=== PATIENT | female | born 1940 | race Caucasian/White ===

== ENCOUNTER 2025-07-31 18:07 | Outpatient (REF) | payer SELFPAY ==
--- OUTSIDE RECORDS SUMMARY | 2025-07-31 18:10 | XMS_ITS | Clinical Summary ---
Author Organization [address] Address [address] [place] [phone] Phone Care Team Providers Care Post Anesthesia Care Unit Nurse Name Role Phone Halima Jerez MD Primary Care Provider + Encounters Date Type Department Care Team Description 07/16/[address] [place] [phone] Halima Jerez MD 07/07/[address] [place] [phone] Halima Jerez MD from Last 3 Months Social History Tobacco Use Types Packs/Day Years Used Date Smoking Tobacco: Never Assessed Comments Unknown Sex and Gender Information Value Date Recorded Sex Assigned at Not on file Legal Sex Female 12:10 PM EDT Gender Identity Not on file Sexual Orientation Not on file Plan of Treatment Health Maintenance Due Date Last Done Comments DTaP,Tdap,and Td Vaccines (1 - Tdap) 1961 Pneumococcal Vaccine: 50+ Ye ars (1 of 2 - PCV) 1961 Zoster Vaccines (1 of 2) 1992 RSV Immunization Adult Patie nts (1 - 1-dose 75+ series) 2017 Depression Screening 11/25/2024 Falls Risk Assessment 04/12/2025 Medicare Annual Wellness Visit 04/12/2025 Osteoporosis Screening (Bone Density Screening) 04/12/2025 Social Influencers of Health Screening 04/12/2025 COVID-19 Vaccine ( - 2023-2 5 season) 2025 Influenza Vaccine (#1) 2025 Hypertension/CHF/CAD Annual BMP Blood Test 04/14/2026 04/14/2025 Cholesterol Screening (Lipid Panel) 04/14/2030 04/14/2025 HIB Vaccines Aged Out No longer eligi ble based on patient's age to complete this topic HPV Vaccines Aged Out No longer eligi ble based on patient's age to complete this topic Hepatitis A Vaccines Aged Out No long er eligible based on patient's age to complete this topic Hepatitis B Vaccines Aged Out No long er eligible based on patient's age to complete this topic IPV Vaccines Aged Out No longer eligi ble based on patient's age to complete this topic MMR Vaccines Aged Out No longer eligi ble based on patient's age to complete this topic Meningococcal ACWY Vaccine Aged Out N o longer eligible based on patient's age to complete this topic Meningococcal B Vaccine Aged Out No l onger eligible based on patient's age to complete this topic RSV Immunization Patients Un miri 20 months Aged Out No longer eligible b ased on patient's age to complete this topic Varicella Vaccines Aged Out No longer eligible based on patient's age to complete this topic Procedures Procedure Name Priority Date/Time Associated Diagnosis Comments COMPREHENSIVE METABOLIC PANEL Routine 04/14/2025 8:20 AM EDT Weakness Other fatigue Type 2 diabetes mellitus without complications ([facility] V24, [facility] V28) LIPID PANEL WITH REFLEX TO DIRECT LDL Routine 04/14/2025 8:20 AM EDT Weakness Other fatigue Type 2 diabetes mellitus without complications (CMS/HCC V24, CMS/[facility] V28) from Last 3 Months or Most Recently Relevant to Health Maintenance Results * (ABNORMAL) Lipid panel with reflex to direct LDL (04/14/2025 8:20 AM EDT) Cholesterol 209(H) 0 - 200 mg/dL LAB CHEMISTRY METHOD 04/14/2025 10:49 AM EDT [facility] Triglycerides 93 0 - 150 mg/dL LAB CHEMISTRY METHOD 04/14/2025 10:49 AM EDT [facility] HDL 52 >=40 mg/dL LAB CHEMISTRY METHOD 04/14/2025 10:49 AM EDT [facility] LDL Calculated 138(H) 0 - 100 mg/dL LAB CHEMISTRY METHOD 04/14/2025 10:49 AM T [facility] VLDL Cholesterol Abbe 18.6 mg/dL LAB CHEMISTRY METHOD 04/14/2025 10:49 AM [facility] Non HDL Chol. (LDL+VLDL) 157(H) <145 mg/dL LAB CHEMISTRY METHOD 04/14/2025 10:49 AM [facility] Chol/HDL Ratio 4.0 0.0 - 4.4 LAB CHEMISTRY METHOD 04/14/2025 10:49 AM [facility] Blood Venous blood specimen / Unknown Venipuncture / Unknown 04/14/2025 8:20 AM EDT 04/14/2025 9:34 AM EDT [facility] BLOOD ORDERABLES Final Result [facility] [address] [place] [address], [place] [phone] * (ABNORMAL) Comprehensive metabolic panel (04/14/2025 8:20 AM EDT) Sodium 140 133 - 145 mmol/L LAB CHEMISTRY METHOD 04/14/2025 10:49 AM [facility] Potassium 4.4 3.5 - 5.5 mmol/L LAB CHEMISTRY METHOD 04/14/2025 10:49 AM [facility] Chloride 108 96 - 110 mmol/L LAB CHEMISTRY METHOD 04/14/2025 10:49 AM [facility] CO2 28 21 - 32 mmol/L LAB CHEMISTRY METHOD 04/14/2025 10:49 AM [facility] Anion Gap 4 3 - 11 LAB CHEMISTRY METHOD 04/14/2025 10:49 AM [facility] Glucose 104(H) 70 - 100 mg/dL LAB CHEMISTRY METHOD 04/14/2025 10:49 AM [facility] BUN 25 5 - 25 mg/dL LAB CHEMISTRY METHOD 04/14/2025 10:49 AM [facility] Creatinine 1.21(H) 0.50 - 1.10 mg/dL LAB CHEMISTRY METHOD 04/14/2025 10:49 AM [facility] eGFR 45(L) >=60 mL/min/1. 73m2 LAB CHEMISTRY METHOD 04/14/2025 10:49 AM [facility] Comment:Calculation based on the Chronic Kidney Disease Epidemiology Collaboration (CKD-EPI) equation refit without adjustment for race. BUN/Creatinine Ratio 20.7 LAB CHEMISTRY METHOD 04/14/2025 10:49 AM [facility] Calcium 8.7 8.5 - 10.5 mg/dL LAB CHEMISTRY METHOD 04/14/2025 10:49 AM [facility] AST (SGOT) 10 10 - 42 unit/L LAB CHEMISTRY METHOD 04/14/2025 10:49 AM [facility] ALT (SGPT) 16 10 - 60 unit/L LAB CHEMISTRY METHOD 04/14/2025 10:49 AM [facility] Alkaline Phosphatase 75 42 - 121 unit/L LAB CHEMISTRY METHOD 04/14/2025 10:49 AM [facility] Total Protein 5.5(L) 6.0 - 8.0 g/dL LAB CHEMISTRY METHOD 04/14/2025 10:49 AM [facility] Albumin 3.2 3.2 - 5.0 g/dL LAB CHEMISTRY METHOD 04/14/2025 10:49 AM [facility] Total Bilirubin 0.3 0.0 - 1.4 mg/dL LAB CHEMISTRY METHOD 04/14/2025 10:49 AM [facility] Blood Venous blood specimen / Unknown Venipuncture / Unknown 04/14/2025 8:20 AM EDT 04/14/2025 9:34 AM EDT us [facility] BLOOD ORDERABLES Final Result [facility] [address] [place] [address], [place] [phone] from Last 3 Months or Most Recently Relevant to Health Maintenance Insurance [facility]ARE [facility] Care Teams Post Anesthesia Care Unit Nurse Relationship Specialty Start Date End Date Halima Jerez MD [address] [place] [id number] PCP - General Internal Medicine 04/12/25
--- OUTSIDE RECORDS SUMMARY | 2025-07-31 18:10 | XMS_ITS | Encounter Summary ---
Author Organization [facility] Address [address] [place] [phone] Care Team Providers Care Asbestos Removal Worker Name Role Phone Halima Jerez MD Primary Care Provider + Encounter Details Date Type Department Care Team (Late st Contact Info) Description 04/12/2025 Lab Requisition [facility] - Main Lab [address] [facility] [place] [phone] Armando Adkins PA [address] [place] [address] Weakness; Other fatigue; Type 2 diabetes mellitus without complications (CMS/HCC V24, CMS/HCC V28) Social History Tobacco Use Types Packs/Day Years Used Date Smoking Tobacco: Never Assessed Comments Unknown Sex and Gender Information Value Date Recorded Sex Assigned at Not on file Legal Sex Female 12:10 PM EDT Gender Identity Not on file Sexual Orientation Not on file documented as of this encounter Plan of Treatment Not on file documented as of this encounter Procedures Procedure Name Priority Date/Time Associated Diagnosis Comments LIPID PANEL WITH REFLEX TO DIRECT LDL Routine 04/14/2025 8:20 AM EDT Weakness Other fatigue Type 2 diabetes mellitus without complications (CMS/HCC V24, CMS/HCC V28) CBC WITH AUTO DIFFERENTIAL Routine 04/14/2025 8:20 AM EDT Weakness Other fatigue Type 2 diabetes mellitus without complications (CMS/HCC V24, CMS/HCC V28) CBC AND DIFFERENTIAL Routine 04/14/2025 8:20 AM EDT Weakness Other fatigue Type 2 diabetes mellitus without complications (CMS/HCC V24, CMS/HCC V28) THYROID STIMULATING HORMONE Routine 04/14/2025 8:20 AM EDT Weakness Other fatigue Type 2 diabetes mellitus without complications ([facility]/HCC V24, [facility] V28) HEMOGLOBIN A1C Routine 04/14/2025 8:20 AM EDT Weakness Other fatigue Type 2 diabetes mellitus without complications ([facility]/HCC V24, [facility] V28) COMPREHENSIVE METABOLIC PANEL Routine 04/14/2025 8:20 AM EDT Weakness Other fatigue Type 2 diabetes mellitus without complications ([facility]/HCC V24, [facility] V28) documented in this encounter Results * (ABNORMAL) CBC auto differential (04/14/2025 8:20 AM EDT) [facility] WBC 7.9 4.8 - 10.8 K/mcL LAB HEMETOLOGY METHOD 04/14/2025 9:57 AM [facility] RBC 4.40 3.80 - 4.80 M/[facility] LAB HEMETOLOGY METHOD 04/14/2025 9:57 AM [facility] Hemoglobin 12.8 11.5 - 16.0 g/dL LAB HEMETOLOGY METHOD 04/14/2025 9:57 AM [facility] Hematocrit 40.3 35.0 - 47.0 % LAB HEMETOLOGY METHOD 04/14/2025 9:57 AM [facility] MCV 92.0 79.0 - 98.0 FL LAB HEMETOLOGY METHOD 04/14/2025 9:57 AM [facility] MCH 29.2 27.0 - 32.0 pcg LAB HEMETOLOGY METHOD 04/14/2025 9:57 AM [facility] MCHC 31.8(L) 32.0 - 37.0 g/dL LAB HEMETOLOGY METHOD 04/14/2025 9:57 AM [facility] RDW 13.9 11.0 - 15.0 % LAB HEMETOLOGY METHOD 04/14/2025 9:57 AM [facility] Platelets 284 130 - 400 K/mcL LAB HEMETOLOGY METHOD 04/14/2025 9:57 AM [facility] MPV 11.0 7.0 - 11.0 FL LAB HEMETOLOGY METHOD 04/14/2025 9:57 AM [facility] NRBC 0.0 <1.0 % LAB HEMETOLOGY METHOD 04/14/2025 9:57 AM [facility] NRBC Absolute 0.00 <0.10 K/mcL LAB HEMETOLOGY METHOD 04/14/2025 9:57 AM [facility] Neutrophils Relative 69.0 % LAB HEMETOLOGY METHOD 04/14/2025 9:57 AM [facility] Lymphocytes Relative 16.4 % LAB HEMETOLOGY METHOD 04/14/2025 9:57 AM [facility] Monocytes Relative 9.7 % LAB HEMETOLOGY METHOD 04/14/2025 9:57 AM [facility] Eosinophils Relative 3.4 % LAB HEMETOLOGY METHOD 04/14/2025 9:57 AM [facility] Basophils Relative 0.9 % LAB HEMETOLOGY METHOD 04/14/2025 9:57 AM [facility] Immature Granulocytes Relative 0.6 % LAB HEMETOLOGY METHOD 04/14/2025 9:57 AM [facility] Neutrophils Absolute 5.48 1.50 - 7.00 K/mcL LAB HEMETOLOGY METHOD 04/14/2025 9:57 AM [facility] Lymphocytes Absolute 1.30 1.00 - 5.00 K/mcL LAB HEMETOLOGY METHOD 04/14/2025 9:57 AM [facility] Monocytes Absolute 0.77 0.20 - 1.00 K/mcL LAB HEMETOLOGY METHOD 04/14/2025 9:57 AM EDT [facility] Eosinophils Absolute 0.27 0.00 - 0.50 K/[facility] LAB HEMETOLOGY METHOD 04/14/2025 9:57 AM EDT [facility] Basophils Absolute 0.07 0.00 - 0.20 K/[facility] LAB HEMETOLOGY METHOD 04/14/2025 9:57 AM EDT [facility] Immature Granulocytes Absolute 0.05(H) 0.00 - 0.03 K/mcL LAB HEMETOLOGY METHOD 04/14/2025 9:57 AM EDT [facility] Blood Venous blood specimen / Unknown Venipuncture / Unknown 04/14/2025 8:20 AM EDT 04/14/2025 9:34 AM EDT [facility] BLOOD ORDERABLES Final Result Performing Organization Address City/[facility]/ZIP Co de Phone Number [facility] [address] [place] [address], [place] [phone] * Thyroid stimulating hormone (04/14/2025 8:20 AM EDT) [facility] Signature TSH 2.11 0.40 - 4.00 mcIU/mL LAB CHEMISTRY METHOD 04/14/2025 11:35 AM EDT [facility] Blood Venous blood specimen / Unknown Venipuncture / Unknown 04/14/2025 8:20 AM EDT 04/14/2025 9:34 AM EDT [facility] BLOOD ORDERABLES Final Result [facility] [address] [place] [address], [place] [phone] * Hemoglobin A1c (04/14/2025 8:20 AM EDT) Pathologist [facility] Hemoglobin A1C 5.5 <6.5 % LAB CHEMISTRY METHOD 04/16/2025 10:32 PM EDT [facility] Mean Bld Glu Estim. 111 mg/dL LAB CHEMISTRY METHOD 04/16/2025 10:32 PM T [facility] Blood Venous blood specimen / Unknown Venipuncture / Unknown 04/14/2025 8:20 AM EDT 04/14/2025 9:34 AM EDT us [facility] LAB BLOOD ORDERABLES Final Result [facility] [address] [place] [address], [place] [phone] * (ABNORMAL) Lipid panel with reflex to direct LDL (04/14/2025 8:20 AM EDT) [facility] Cholesterol 209(H) 0 - 200 mg/dL LAB CHEMISTRY METHOD 04/14/2025 10:49 AM [facility] Triglycerides 93 0 - 150 mg/dL LAB CHEMISTRY METHOD 04/14/2025 10:49 AM [facility] HDL 52 >=40 mg/dL LAB CHEMISTRY METHOD 04/14/2025 10:49 AM T [facility] LDL Calculated 138(H) 0 - 100 mg/dL LAB CHEMISTRY METHOD 04/14/2025 10:49 AM [facility] VLDL Cholesterol Abbe 18.6 mg/dL LAB CHEMISTRY METHOD 04/14/2025 10:49 AM EDT [facility] Non HDL Chol. (LDL+VLDL) 157(H) <145 mg/dL LAB CHEMISTRY METHOD 04/14/2025 10:49 AM [facility] Chol/HDL Ratio 4.0 0.0 - 4.4 LAB CHEMISTRY METHOD 04/14/2025 10:49 AM [facility] Blood Venous blood specimen / Unknown Venipuncture / Unknown 04/14/2025 8:20 AM EDT 04/14/2025 9:34 AM EDT us [facility] LAB BLOOD ORDERABLES Final Result [facility] [address] [place] [address], * (ABNORMAL) Comprehensive metabolic panel (04/14/2025 8:20 AM EDT) Sodium 140 133 - 145 mmol/L LAB CHEMISTRY METHOD 04/14/2025 10:49 AM [facility] Potassium 4.4 3.5 - 5.5 mmol/L LAB CHEMISTRY METHOD 04/14/2025 10:49 AM [facility] Chloride 108 96 - 110 mmol/L LAB CHEMISTRY METHOD 04/14/2025 10:49 AM [facility] CO2 28 21 - 32 mmol/L LAB CHEMISTRY METHOD 04/14/2025 10:49 AM [facility] Anion Gap 4 3 - 11 LAB CHEMISTRY METHOD 04/14/2025 10:49 AM [facility] Glucose 104(H) 70 - 100 mg/dL LAB CHEMISTRY METHOD 04/14/2025 10:49 AM [facility] BUN 25 5 - 25 mg/dL LAB CHEMISTRY METHOD 04/14/2025 10:49 AM [facility] Creatinine 1.21(H) 0.50 - 1.10 mg/dL LAB CHEMISTRY METHOD 04/14/2025 10:49 AM [facility] eGFR 45(L) >=60 mL/min/1. 73m2 LAB CHEMISTRY METHOD 04/14/2025 10:49 AM [facility] Comment:Calculation based on the Chronic Kidney Disease Epidemiology Collaboration (CKD-EPI) equation refit without adjustment for race. BUN/Creatinine Ratio 20.7 LAB CHEMISTRY METHOD 04/14/2025 10:49 AM [facility] Calcium 8.7 8.5 - 10.5 mg/dL LAB CHEMISTRY METHOD 04/14/2025 10:49 AM [facility] AST (SGOT) 10 10 - 42 unit/L LAB CHEMISTRY METHOD 04/14/2025 10:49 AM [facility] ALT (SGPT) 16 10 - 60 unit/L LAB CHEMISTRY METHOD 04/14/2025 10:49 AM [facility] Alkaline Phosphatase 75 42 - 121 unit/L LAB CHEMISTRY METHOD 04/14/2025 10:49 AM [facility] Total Protein 5.5(L) 6.0 - 8.0 g/dL LAB CHEMISTRY METHOD 04/14/2025 10:49 AM [facility] Albumin 3.2 3.2 - 5.0 g/dL LAB CHEMISTRY METHOD 04/14/2025 10:49 AM [facility] Total Bilirubin 0.3 0.0 - 1.4 mg/dL LAB CHEMISTRY METHOD 04/14/2025 10:49 AM [facility] Blood Venous blood specimen / Unknown Venipuncture / Unknown 04/14/2025 8:20 AM EDT 04/14/2025 9:34 AM EDT us [facility] BLOOD ORDERABLES Final Result [facility] [address] [place] [address], documented in this encounter Visit Diagnoses Diagnosis Weakness Other malaise and fatigue Other fatigue Type 2 diabetes mellitus without complications (CMS/HCC V24, CMS/HCC V28) documented in this encounter Care Teams Asbestos Removal Worker Relationship Specialty Start Date End Date Halima Jerez MD [address] [place] [address] PCP - General Internal Medicine 04/12/25 documented as of this encounter
== END 2025-07-31 18:08 | disposition home or self-care (01) ==
LOC: HO.MMNH2L 18:07
DX: Z13.89 Encounter for screening for other disorder (principal)